=== PATIENT | male | born 1995 | race Caucasian/White ===

== ENCOUNTER 2016-08-02 20:13 | Emergency (ER) | payer MEDICAID ==
[~2016-08-02] VITALS: Ht 188 cm; Wt 70.0 kg
[2016-08-02] MEDS ORDERED: ZONISAMIDE 50 MG CAPSULE PO STA (20:43)
[2016-08-02] MEDS ORDERED: SODIUM CHLORIDE FLUSH 10ML SYR IVF ONE (21:00)
[2016-08-02 21:34] LABS: HEMOGLOBIN 14.7 g/dL (13.7-18.0)
[2016-08-02 21:48] LABS: BLOOD UREA NITROGEN 12 mg/dL (7-18)
[2016-08-02] MEDS ORDERED: SODIUM CHLORIDE 0.9% IV ONE (22:30)
[2016-08-02] MEDS ORDERED: FILTER 0.22 MICRON IV ONE (22:30)
[2016-08-02] MEDS ORDERED: PHENYTOIN SODIUM IV ONE (22:30)
[2016-08-02 23:07] VITALS: BP 113/77
== END 2016-08-02 23:09 ==
LOC: ED 21:10
DX: R56.9 Unspecified convulsions (principal); Z91.14 Patient's other noncompliance with medication regimen
CPT/HCPCS: 36415; 70450; 80048; 80185; 82040; 85025; 93005; 96365; 99285; J1165